=== PATIENT | male | born 1990 | race Caucasian/White ===

== ENCOUNTER 2024-04-23 10:19 | Emergency (ER) | payer SELFPAY ==
[2024-04-23] MEDS ORDERED: Amoxicillin/Potassium Clav 875 MG TAB ONE (11:00)
[2024-04-23] MEDS ORDERED: Sulfameth/Trimethoprim DS 800-160mg TAB ONE (11:00)
== END 2024-04-23 11:06 | disposition home or self-care (01) ==
LOC: BURERS 10:19
DX: L02.31 Cutaneous abscess of buttock (principal); M25.512 Pain in left shoulder; F17.210 Nicotine dependence, cigarettes, uncomplicated
CPT/HCPCS: 99283